=== PATIENT | male | born 1960 | race Caucasian/White ===

== ENCOUNTER 2017-01-17 18:27 | Observation (INO) | payer OTHER ==
[~2017-01-17] VITALS: Ht 170.2 cm; Wt 97.0 kg
[2017-01-17] MEDS ORDERED: ASPIRIN 81 MG CHEW PO STA (18:41)
[2017-01-17] MEDS ORDERED: SODIUM CHLORIDE 0.9% 1000ML 1,000 ML IV STA (18:41)
[2017-01-17] MEDS ORDERED: MoRPHine SULFATE 4 MG/ML 1 ML CARP\\VIAL IV STA (18:43)
[2017-01-17 19:11] LABS: BASO % 0.2 %; BASO ABS # 0.02 K/uL (0-0.2); COMPLETE YES; EOS % 1.3 %; HEMATOCRIT 39.8 % (42-52); IG% 0.3 %; LYMPH % 20.2 %; LYMPH ABS # 1.97 K/uL (1.2-3.4); MEAN CELL VOLUME 88.4 fL (80-100); MEAN CORPUSCULAR HEMOGLOBIN 30.7 pg (25-34); MEAN CORPUSCULAR HGB CONC 34.7 g/dl (32-36); MEAN PLATELET VOLUME 9.4 fL (7.4-10.4); MONO % 12.6 %; NEUT % 65.4 %; PLATELET COUNT 230 K/uL (130-400); WHITE BLOOD COUNT 9.73 K/uL (4.8-10.8)
--- NOTE | 2017-01-17 19:26 | DIAGNOSTIC IMAGING REPORT ---
SINGLE VIEW CHEST CLINICAL HISTORY: Atypical chest pain. FINDINGS: An AP, portable, upright chest radiograph is compared to study dated 10/09/2006. The examination is degraded by portable technique and patient rotation. The heart is enlarged. The pulmonary vasculature is noncongested. Chronic interstitial thickening is similar to previous. No airspace consolidation, large pleural effusion, or pneumothorax is seen. The bony thorax is grossly intact. IMPRESSION: Cardiomegaly with no acute cardiopulmonary abnormality. Electronically signed by: Daniel Malloy M.D. 01/17/2017 7:25 PM Dictated Date/Time: 01/17/2017 7:24 PM
[2017-01-17 19:28] LABS: BLOOD UREA NITROGEN 10 mg/dl (7-18); BUN/CREATININE RATIO 9.3 (10-20); CALCIUM 8.8 mg/dl (8.5-10.1); CARBON DIOXIDE 24 mmol/L (21-32); CHLORIDE 112 mmol/L (98-107); GLUCOSE 100 mg/dl (70-99); POTASSIUM 3.8 mmol/L (3.5-5.1); SODIUM 142 mmol/L (136-145)
[2017-01-17 19:33] LABS: CKMB/CK RATIO 1.1 (0-3.0)
[2017-01-17] MEDS ORDERED: OPTIRAY 320 IV PRN (20:00)
--- NOTE | 2017-01-17 20:14 | DIAGNOSTIC IMAGING REPORT ---
CT ANGIOGRAM OF THE CHEST CLINICAL HISTORY: Atypical chest pain. COMPARISON STUDY: Chest x-ray dated 01/17/2017. TECHNIQUE: Following the IV administration of 93 cc of Optiray 320, CT angiogram of the chest was performed from the upper abdomen to the thoracic inlet utilizing the pulmonary embolus protocol. Images are reviewed in the axial, sagittal, and coronal planes. 3-D MIPS images are created and assessed. IV contrast was administered without complication. A dose lowering technique was utilized adhering to the principles of ALARA. CT DOSE: 602.43 mGy.cm FINDINGS: Thyroid: Imaged portions of the thyroid gland are normal in size and attenuation. Thoracic aorta: The thoracic aorta is normal in caliber and demonstrates bovine variant arch anatomy. No dissection is seen. Pulmonary vasculature: The pulmonary trunk is normal in caliber. There are no filling defects identified in main, lobar, or segmental pulmonary branches to suggest pulmonary embolus. Heart: The heart is mildly enlarged and without pericardial effusion. There are scattered coronary artery calcifications. Lungs and pleural spaces: There is a fat-containing Bochdalek hernia at the medial right lung base. No airspace consolidation or pleural effusion is identified. The trachea and central airways are clear. Mediastinum: There is no mediastinal lymphadenopathy. Mona: Clear. Axillae: There is no axillary lymphadenopathy. Upper abdomen: Partially visualized upper abdominal viscera is within normal limits. Skeletal structures: No lytic or blastic bony lesions are seen. IMPRESSION: 1. There is no evidence of pulmonary embolus in the main, lobar, or segmental pulmonary arteries. 2. The lungs are clear. 3. Cardiomegaly. Electronically signed by: Daniel Malloy M.D. 01/17/2017 8:13 PM Dictated Date/Time: 01/17/2017 8:05 PM
[2017-01-17] MEDS ORDERED: POLYETHYLENE (MIRALAX) 17 GM PACK PO PRN (20:45)
[2017-01-17] MEDS ORDERED: NITROGLYCERIN 0.4 MG SL PER TAB CHARGE SL PRN (20:45)
[2017-01-17] MEDS ORDERED: ACETAMINOPHEN 325 MG TAB PO PRN (20:45)
[2017-01-17] MEDS ORDERED: ZOLPIDEM TARTRATE 5 MG TAB PO PRN (20:45)
[2017-01-17] MEDS ORDERED: ONDANSETRON INJ 2 MG/ML 2 ML VIAL IV PRN (20:45)
[2017-01-17] MEDS ORDERED: MAGNESIUM HYDROXIDE SUSP 30 ML UDC PO PRN (20:45)
[2017-01-17] MEDS ORDERED: ALUMINUM/MAGNESIUM/SIMETH (MAALOX MAX) 30 ML UDC PO PRN (20:45)
--- NOTE | 2017-01-17 21:01 | History and Physical ---
History & Physical Date & Time of Service: Jan 17, 2017 at 20:53 Chief Complaint: Chest Pain Primary Care Physician: Francis Goldstein M.D. History of Present Illness Source: patient 56 y/o M Hx untreated HPL. Pt states that over the past 2 months he has had intermittent CP with exertion. Accompanied by sob - denies N/V, diaphoresis or lightheadedness. Over the past 2 days these episodes have occurred at rest and his pain level has increased. The pt denies a cardiac history, however, he states that a few years ago he was told that his cholesterol was high and he did not follow-up to address this. Initial EKG shows T wv inversions in inferior leads. His systolic pressure is in the 170s at the time of admission. 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 He does not drink daily, however, he sadaf drinks on weekends and can drink uo to 3 6 packs in an evening. He admits to a generally poor diet. Smoking Status: Never Smoker Immunizations History of Influenza Vaccine: No History of Tetanus Vaccine?: Unknown History of Pneumococcal: No History of Hepatitis B Vaccine: No Multi-Drug Resistant Organisms History of MDRO: No Allergies Coded Allergies: No Known Allergies (Unverified , 11/06/15) Home Medications No Active Prescriptions or Reported Meds Review of Systems Constitutional: No fever, No chills, No sweats Eyes: No worsening of vision, No eye pain ENT: No hearing loss, No unusual epistaxis, No nasal symptoms Respiratory: + shortness of breath, No cough, No sputum, No wheezing Cardiovascular: + chest pain, No orthopnea, No PND Abdomen: + pain, No nausea, No vomiting Musculoskeletal: No joint pain, No muscle pain Genitourinary - Male: No hematuria, No dysuria, No urinary frequency, No urinary urgency Neurologic: No memory loss, No paralysis, No weakness Psychiatric: No depression symptoms Endocrine: No fatigue Hematologic / Lymphatic: No abnormal bleeding/bruising Integumentary: No rash Allergic / Immunologic: No environmental allergies Physical Exam Vital Signs Date Time Temp Pulse Resp B/P (MAP) Pulse Ox O2 Delivery O2 Flow Rate FiO2 01/17/17 19:53 64 20 167/104 100 Nasal Cannula 2.0 01/17/17 19:03 77 01/17/17 19:01 78 20 177/104 96 Room Air 01/17/17 18:59 96 Room Air 01/17/17 18:30 36.9 86 18 159/104 95 Room Air General Appearance: WD/WN, no apparent distress Head: normocephalic, atraumatic Eyes: normal inspection, EOMI ENT: normal ENT inspection, pharynx normal Neck: supple, no JVD Respiratory/Chest: chest non-tender, lungs clear, normal breath sounds, no respiratory distress, no accessory muscle use Cardiovascular: regular rate, rhythm, no edema, no gallop, no JVD, no murmur, normal peripheral pulses Abdomen/GI: normal bowel sounds, + tenderness (RUQ) Back: normal inspection, no CVA tenderness, no muscle spasm, normal range of motion Extremities/Musculoskelatal: normal inspection, no calf tenderness, normal capillary refill Neurologic/Psych: 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 hand II-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 nml as tested, no motor/sensory deficits, alert, normal mood/affect, normal reflexes, oriented x 3 Skin: normal color, warm/dry, no rash Diagnostics Laboratory Results Results Past 24 Hours Test 01/17/17 19:02 Range/Units White Blood Count 9.73 4.8-10.8 K/uL Red Blood Count 4.50 4.7-6.1 M/uL Hemoglobin 13.8 14.0-18.0 g/dL Hematocrit 39.8 42-52 % Mean Corpuscular Volume 88.4 80-100 fL Mean Corpuscular Hemoglobin 30.7 25-34 pg Mean Corpuscular Hemoglobin Concent 34.7 32-36 g/dl Platelet Count 230 130-400 K/uL Mean Platelet Volume 9.4 7.4-10.4 fL Neutrophils (%) (Auto) 65.4 % Lymphocytes (%) (Auto) 20.2 % Monocytes (%) (Auto) 12.6 % Eosinophils (%) (Auto) 1.3 % Basophils (%) (Auto) 0.2 % Neutrophils # (Auto) 6.35 1.4-6.5 K/uL Lymphocytes # (Auto) 1.97 1.2-3.4 K/uL Monocytes # (Auto) 1.23 0.11-0.59 K/uL Eosinophils # (Auto) 0.13 0-0.5 K/uL Basophils # (Auto) 0.02 0-0.2 K/uL RDW Standard Deviation 42.3 36.4-46.3 fL RDW Coefficient of Variation 13.1 11.5-14.5 % Immature Granulocyte % (Auto) 0.3 % Immature Granulocyte # (Auto) 0.03 0.00-0.02 K/uL D-Dimer 560 0-500 ug/L FEU Sodium Level 142 136-145 mmol/L Potassium Level 3.8 3.5-5.1 mmol/L Chloride Level 112 98-107 mmol/L Carbon Dioxide Level 24 21-32 mmol/L Anion Gap 6.0 3-11 mmol/L Blood Urea Nitrogen 10 7-18 mg/dl Creatinine 1.10 0.60-1.40 mg/dl Est Creatinine Clear Calc Drug Dose 85.1 ml/min Estimated GFR () 86.5 Estimated GFR (Non- 74.6 BUN/Creatinine Ratio 9.3 10-20 Random Glucose 100 70-99 mg/dl Calcium Level 8.8 8.5-10.1 mg/dl Total Creatine Kinase 176 39-308 U/L Creatine Kinase MB 1.9 0.5-3.6 ng/ml Creatine Kinase MB Ratio 1.1 0-3.0 Troponin I < 0.015 0-0.045 ng/ml Diagnostic Radiology CTA 1. There is no evidence of pulmonary embolus in the main, lobar, or segmental pulmonary arteries. 2. The lungs are clear. 3. Cardiomegaly. EKG NSR - inf t wv inversions Impression Assessment and Plan 56 y/o M Hx untreated HPL. Pt states that over the past 2 months he has had intermittent CP with exertion. Accompanied by sob - denies N/V, diaphoresis or lightheadedness. Over the past 2 days these episodes have occurred at rest and his pain level has increased. The pt denies a cardiac history, however, he states that a few years ago he was told that his cholesterol was high and he did not follow-up to address this. Initial EKG shows T wv inversions in inferior leads. His systolic pressure is in the 170s at the time of admission. Pt is admitted for a chest pain workup - he has several risk factors and concerning symptoms which appear to be worsening. He is assigned to telemetry, serial enzymes ordered, NTG/Morphine PRN for CP, placed on a Statin, ASA, Bblocker due to elevated pressure. We will check a lipid profile. Considering his history it may be prudent to schedule inpatient stress testing prior to DC. Pts pressure is elevated - unclear if this is chronic. Ther is no LVH on EKG although the CT does show cardiomegaly. He has been placed on TD NTG and a B gerard. He does have some RUQ tenderness following a sadaf-drinking episode so that we will check a lipase. Full code Heparin prophylaxis - total time for this admit including review of labs, meds, EKG, imaging - discussion with pt and ER attending 38 min Level of Care Telemetry Resuscitation Status FULL RESUSCITATION VTE Prophylaxis VTE Risk Assessment Done? Y/N: Yes Risk Level: Low Given or contraindicated: Unfractionated heparin SQ
[2017-01-17] MEDS: MoRPHine SULFATE 2 MG/ML CARP IV PRN (21:09)
[2017-01-17 22:03] VITALS: BP 177/99; PULSE 58; TEMP 36.7; BMI 32.9
[2017-01-17] MEDS ORDERED: IV FLUIDS COMPLETED PRN (22:15)
[2017-01-17 22:22] VITALS: BP 181/102; PULSE 58; TEMP 36.4; O2SAT 98
[2017-01-17] MEDS ORDERED: NITROGLYCERIN 0.4 MG/HR PATCH TD ONE (22:30)
[2017-01-17] MEDS: NSS + 20MEQ KCL 1000ML 1,000 ML IV SCH (22:32)
[2017-01-17] MEDS: METOPROLOL TARTRATE 25 MG TAB PO SCH (22:33)
[2017-01-17 23:37] VITALS: BP 151/74; PULSE 57; TEMP 36.6; O2SAT 97
--- NOTE | 2017-01-17 23:39 | EMERGENCY ROOM VISIT NOTE ---
History Report prepared by Fletcher: Yoan Hampton Under the Supervision of: Dr. Lm Vanegas D.O. First contact with patient: 18:36 Chief Complaint: CHEST PAIN Stated Complaint: CHEST PAIN History of Present Illness The patient is a 56 year old male who presents to the Emergency Room with complaints of waxing and waning left-sided chest tightness that began this morning at 0800. He rates his pain a 7/10 in severity. He has been having this pain intermittently for a couple of weeks now, but today it has been constantly present. His pain worsens with exertion and deep breaths. His pain is mildly relieved with rest. He is also experiencing shortness of breath and one episode of left arm numbness. Pt denies headache, change in vision, fevers, nausea, vomiting, diarrhea, pain with urination, melena, or leg swelling. He denies any history of heart attacks, PE's, cancers, or hypertension. He has a history of hyperlipidemia. Source of History: patient Onset: this morning Position: chest (left) Symptom Intensity: 7/10 Quality: other (tightness) Timing: waxes/wanes Modifying Factors (Worsening): exertion, breathing Modifying Factors (Relieving): rest Associated Symptoms: + SOB, No fevers, No headache, No nausea, No vomiting, No melena, No diarrhea, No urinary symptoms Review of Systems See HPI for pertinent positives & negatives. A total of 10 systems reviewed and were otherwise negative. Past Medical & Surgical Medical Problems: (1) Chest pain (2) Hyperlipidemia Family History Omitted secondary to patient's age. Social History Smoking Status: Never Smoker Smokeless Tobacco Use: No Drug Use: none Marital Status: Housing Status: lives with family Occupation Status: employed Current/Historical Medications No Active Prescriptions or Reported Meds Allergies Coded Allergies: No Known Allergies (Unverified , 11/06/15) Physical Exam Vital Signs Date Time Temp Pulse Resp B/P (MAP) Pulse Ox O2 Delivery O2 Flow Rate FiO2 01/17/17 20:30 170/110 01/17/17 20:27 70 15 98 01/17/17 20:08 168/93 01/17/17 19:53 64 20 167/104 100 Nasal Cannula 2.0 01/17/17 19:30 167/104 01/17/17 19:27 72 18 99 01/17/17 19:16 173/127 01/17/17 19:03 77 01/17/17 19:01 78 20 177/104 96 Room Air 01/17/17 18:59 96 Room Air 01/17/17 18:57 177/104 01/17/17 18:30 36.9 86 18 159/104 95 Room Air Physical Exam GENERAL: alert, disheveled appearing, well nourished, no distress, non-toxic, sitting up in bed EYE EXAM: normal conjunctiva OROPHARYNX: no exudate, no erythema, lips, buccal mucosa, and tongue normal and mucous membranes are moist NECK: supple, no nuchal rigidity, no adenopathy, non-tender LUNGS: Clear to auscultation. Normal chest wall mechanics HEART: no murmurs, S1 normal and S2 normal CHEST: Left anterior chest wall pain to palpation. ABDOMEN: abdomen soft, non-tender, normo-active bowel sounds, no masses, no rebound or guarding. BACK: Back is symmetrical on inspection and there is no deformity, no midline tenderness, no CVA tenderness. SKIN: no rashes and no bruising UPPER EXTREMITIES: upper extremities are grossly normal. Radial pulses equal bilaterally. LOWER EXTREMITIES: No pitting edema. Calves equal bilaterally. NEURO EXAM: Normal sensorium, cranial nerves II-XII grossly intact, normal speech, no gross weakness of arms, no gross weakness of legs. Medical Decision & Procedures ER Provider Diagnostic Interpretation: Radiology results as stated below per my review and the radiologist's interpretation: SINGLE VIEW CHEST CLINICAL HISTORY: Atypical chest pain. FINDINGS: An AP, portable, upright chest radiograph is compared to study dated 10/09/2006. The examination is degraded by portable technique and patient rotation. The heart is enlarged. The pulmonary vasculature is noncongested. Chronic interstitial thickening is similar to previous. No airspace consolidation, large pleural effusion, or pneumothorax is seen. The bony thorax is grossly intact. IMPRESSION: Cardiomegaly with no acute cardiopulmonary abnormality. Electronically signed by: Daniel Malloy M.D. 01/17/2017 7:25 PM Dictated Date/Time: 01/17/2017 7:[address] ANGIOGRAM OF THE CHEST CLINICAL HISTORY: Atypical chest pain. COMPARISON STUDY: Chest x-ray dated 01/17/2017. TECHNIQUE: Following the IV administration of 93 cc of Optiray 320, CT angiogram of the chest was performed from the upper abdomen to the thoracic inlet utilizing the pulmonary embolus protocol. Images are reviewed in the axial, sagittal, and coronal planes. 3-D MIPS images are created and assessed. IV contrast was administered without complication. A dose lowering technique was utilized adhering to the principles of ALARA. CT DOSE: 602.43 mGy.cm FINDINGS: Thyroid: Imaged portions of the thyroid gland are normal in size and attenuation. Thoracic aorta: The thoracic aorta is normal in caliber and demonstrates bovine variant arch anatomy. No dissection is seen. Pulmonary vasculature: The pulmonary trunk is normal in caliber. There are no filling defects identified in main, lobar, or segmental pulmonary branches to suggest pulmonary embolus. Heart: The heart is mildly enlarged and without pericardial effusion. There are scattered coronary artery calcifications. Lungs and pleural spaces: There is a fat-containing Bochdalek hernia at the medial right lung base. No airspace consolidation or pleural effusion is identified. The trachea and central airways are clear. Mediastinum: There is no mediastinal lymphadenopathy. Mona: Clear. Axillae: There is no axillary lymphadenopathy. Upper abdomen: Partially visualized upper abdominal viscera is within normal limits. Skeletal structures: No lytic or blastic bony lesions are seen. IMPRESSION: 1. There is no evidence of pulmonary embolus in the main, lobar, or segmental pulmonary arteries. 2. The lungs are clear. 3. Cardiomegaly. Electronically signed by: Daniel Malloy M.D. 01/17/2017 8:13 PM Dictated Date/Time: 01/17/2017 8:05 PM Laboratory Results 01/17/17 19:02 Red Blood Count 4.50, Mean Corpuscular Volume 88.4, Mean Corpuscular Hemoglobin 30.7, Mean Corpuscular Hemoglobin Concent 34.7, Mean Platelet Volume 9.4, Neutrophils (%) (Auto) 65.4, Lymphocytes (%) (Auto) 20.2, Monocytes (%) (Auto) 12.6, Eosinophils (%) (Auto) 1.3, Basophils (%) (Auto) 0.2, Neutrophils # (Auto ) 6.35, Lymphocytes # (Auto) 1.97, Monocytes # (Auto) 1.23, Eosinophils # (Auto ) 0.13, Basophils # (Auto) 0.02 01/17/17 19:02 Test 01/17/17 19:02 White Blood Count 9.73 K/uL (4.8-10.8) Red Blood Count 4.50 M/uL (4.7-6.1) Hemoglobin 13.8 g/dL (14.0-18.0) Hematocrit 39.8 % (42-52) Mean Corpuscular Volume 88.4 fL (80-100) Mean Corpuscular Hemoglobin 30.7 pg (25-34) Mean Corpuscular Hemoglobin Concent 34.7 g/dl (32-36) Platelet Count 230 K/uL (130-400) Mean Platelet Volume 9.4 fL (7.4-10.4) Neutrophils (%) (Auto) 65.4 % Lymphocytes (%) (Auto) 20.2 % Monocytes (%) (Auto) 12.6 % Eosinophils (%) (Auto) 1.3 % Basophils (%) (Auto) 0.2 % Neutrophils # (Auto) 6.35 K/uL (1.4-6.5) Lymphocytes # (Auto) 1.97 K/uL (1.2-3.4) Monocytes # (Auto) 1.23 K/uL (0.11-0.59) Eosinophils # (Auto) 0.13 K/uL (0-0.5) Basophils # (Auto) 0.02 K/uL (0-0.2) RDW Standard Deviation 42.3 fL (36.4-46.3) RDW Coefficient of Variation 13.1 % (11.5-14.5) Immature Granulocyte % (Auto) 0.3 % Immature Granulocyte # (Auto) 0.03 K/uL (0.00-0.02) D-Dimer 560 ug/L FEU (0-500) Anion Gap 6.0 mmol/L (3-11) Est Creatinine Clear Calc Drug Dose 85.1 ml/min Estimated GFR () 86.5 Estimated GFR (Non- 74.6 BUN/Creatinine Ratio 9.3 (10-20) Calcium Level 8.8 mg/dl (8.5-10.1) Total Creatine Kinase 176 U/L (39-308) Creatine Kinase MB 1.9 ng/ml (0.5-3.6) Creatine Kinase MB Ratio 1.1 (0-3.0) Laboratory results per my review. Medications Administered Medications (Trade) Dose Ordered Sig/Mauricio Route Start Time Stop Time Status Last Admin Dose Admin Sodium Chloride 1,000 ml @ 999 mls/hr Q1H1M STAT IV 01/17/17 18:41 01/17/17 19:41 DC 01/17/17 19:12 999 MLS/HR Aspirin (Aspirin Chew) 324 mg NOW STAT PO 01/17/17 18:41 01/17/17 18:43 DC 01/17/17 19:11 324 MG Morphine Sulfate (MoRPHine SULFATE INJ) 4 mg NOW STAT IV 01/17/17 18:43 01/17/17 18:44 DC 01/17/17 19:12 4 MG ECG Indication: chest pain Rate (beats per minute): 81 Rhythm: sinus rhythm Findings: nonspecific-ST abn (Lateral and high lateral), T-wave inversion ( Inferior) Comparison ECG Date: 05 Apr 2010 Change: T-inversion and ST changes are new. Repeat ECG: improved, SR 61, no ischemic changes or ectopy. ED Course ED COURSE: Vital signs were reviewed and showed hypertension. The patients medical record was reviewed The above diagnostic studies were performed and reviewed. ED treatments and interventions as stated above. 1836: The patient was evaluated in room C4. A complete history and physical examination was performed. 1841: Ordered Aspirin 324 mg PO, Sodium Chloride 1000 ml @ 999 mls/hr IV 1843: Ordered Morphine Sulfate 4 mg IV 2009: The patient's tightness is gone, but his pleuritic pain is still there. However, it has improved. 2016: Upon reevaluation, the patient is resting. I discussed my findings with the patient and he understands and agrees with the treatment plan. Based on the patients age, coexisting illnesses, exam and lab findings the decision to treat as an inpatient was made. The patient remained stable while under my care. The patient will be evaluated by Dr. Cruz LOYA, for further management. Medical Decision Differential diagnoses includes but is not limited to acute coronary syndrome, myocardial infarction, pericarditis, pulmonary embolus, aortic dissection, pneumonia, pneumothorax, musculoskeletal, shingles, esophageal. Patient is a 56-year-old male who complains of exertional chest pain which is worsening over the past 2 weeks. He notes it's most specifically worse over the past 2 days. It resolves with rest. He does complain of 2 separate chest pains. One of which is pleuritic in nature and the other is a tightness. Following nitroglycerin and fentanyl his tightness completely resolved. The pleuritic pain remained. D-dimer was elevated. CT PE was negative. Initial EKG showed flipped T waves in the inferior leads which resolved with resolution of his chest tightness. Troponin was negative. Patient was updated at bedside and admitted to internal medicine with exertional chest pain. Medication Reconcilliation Current Medication List: was personally reviewed by me Blood Pressure Screening Patient's blood pressure: Elevated blood pressure Blood pressure disposition: Elevated BP felt to be situational Consults Time Called: 2013 Consulting Physician: Dr. Cruz RODRÍGUEZ Returned Call: 2015 I reviewed the patient's case with him. He will evaluate the patient for further management. Impression Primary Impression: Precordial chest pain Additional Impressions: Pleuritic chest pain Acute electrocardiogram changes Scribe Attestation The scribe's documentation has been prepared under my direction and personally reviewed by me in its entirety. I confirm that the note above accurately reflects all work, treatment, procedures, and medical decision making performed by me. Departure Information Dispostion Being Evaluated By Hospitalist Prescriptions No Active Prescriptions or Reported Meds Referrals Francis Goldstein M.D. (PCP) Patient Instructions My [facility] Problem Qualifiers
[2017-01-18] MEDS: MoRPHine SULFATE 2 MG/ML CARP IV PRN ×5 (00:06→09:50)
[2017-01-18 03:55] VITALS: O2SAT 98
[2017-01-18 03:59] VITALS: BP 125/81; PULSE 51; TEMP 36.5; O2SAT 96; Ht 170.2 cm; Wt 97.0 kg
[2017-01-18 05:44] LABS: PARTIAL THROMBOPLASTIN RATIO 1.1; PROTHROMBIN TIME (PATIENT) 10.6 SECONDS (9.0-12.0)
[2017-01-18] MEDS ORDERED: HEPARIN SOD 5000 UNIT/0.5 ML CARP SQ SCH (06:00)
[2017-01-18 07:19] VITALS: BP 132/87; PULSE 50; TEMP 36.9; O2SAT 96
[2017-01-18] MEDS: NSS + 20MEQ KCL 1000ML 1,000 ML IV SCH (07:55)
[2017-01-18] MEDS: METOPROLOL TARTRATE 25 MG TAB PO SCH (07:56)
[2017-01-18] MEDS ORDERED: ATORVASTATIN 40 MG TAB PO SCH (09:00)
[2017-01-18] MEDS ORDERED: ASPIRIN 325 MG ECTAB PO SCH (09:00)
[2017-01-18 09:13] LABS: CHOLESTEROL/HDL RATIO 5.4
[2017-01-18 12:43] VITALS: BP 160/87; PULSE 60; O2SAT 96
[2017-01-18] MEDS ORDERED: NXM/40 PO (14:20)
[2017-01-18] MEDS ORDERED: CYCL10TA6 PO (14:20)
[2017-01-18] MEDS ORDERED: ACET-1047 PO (14:20)
--- NOTE | 2017-01-18 14:30 | Discharge Instructions ---
Discharge Instructions Date of Service Jan 18, 2017. Admission Reason for Admission: Chest Pain Discharge Discharge Diagnosis / Problem: Musculoskeletal chest pain Discharge Goals Goal(s): Decrease discomfort, Improve disease control, Therapeutic intervention Activity Recommendations Activity Limitations: as noted below Lifting Limitations: no more than 10 pounds Exercise/Sports Limitations: rest today (please avoid heavy lifting for 1 week) Shower/Bathe: no limitations Driving or Machine Use: no driving while taking medication that can make you drowsy like cyclobenzaprine (Flexeril) . Instructions / Follow-Up Instructions / Follow-Up You were admitted for left sided chest pain. You had a normal stress test of the heart. You cholesterol was checked along with other blood work. You do not need to be on medication for your cholesterol. It is recommended that you follow a healthy diet and refrain from drinking excessive amounts of alcohol. Your chest pain is thought to be coming from a strained pectoralis muscle from heavy lifting. You are having muscle spasms of the muscle in your chest wall. You should refrain from any heavy lifting over the next week (no more than 10 lbs.). If it is not improving, you should seek a referral to see a Physical Therapist from your family doctor. Your blood pressure was elevated at times in the hospital. It is important that you follow up with your family doctor about this too. Because you have a mild anemia (low iron level), and had one episode of a black stool last week, you should follow up with your Design Assembler, Dr. Horace Rivera. You may need to have a scope to look at your stomach.If you develop more black stools, you should come to the ER immediately. Please see your family doctor within 1 week. Current Hospital Diet Patient's current hospital diet: AHA Diet (Heart Healthy) Discharge Diet Recommended Diet: AHA Diet (Heart Healthy) Procedures Procedures Performed: Stress Echocardiogram CT angiogram chest Chest xray Pending Studies Studies pending at discharge: no Laboratory Results Last 24 Hours Test 01/17/17 19:02 01/17/17 23:20 01/18/17 04:40 01/18/17 06:04 White Blood Count 9.73 K/uL Red Blood Count 4.50 M/uL Hemoglobin 13.8 g/dL Hematocrit 39.8 % Mean Corpuscular Volume 88.4 fL Mean Corpuscular Hemoglobin 30.7 pg Mean Corpuscular Hemoglobin Concent 34.7 g/dl Platelet Count 230 K/uL Mean Platelet Volume 9.4 fL Neutrophils (%) (Auto) 65.4 % Lymphocytes (%) (Auto) 20.2 % Monocytes (%) (Auto) 12.6 % Eosinophils (%) (Auto) 1.3 % Basophils (%) (Auto) 0.2 % Neutrophils # (Auto) 6.35 K/uL Lymphocytes # (Auto) 1.97 K/uL Monocytes # (Auto) 1.23 K/uL Eosinophils # (Auto) 0.13 K/uL Basophils # (Auto) 0.02 K/uL RDW Standard Deviation 42.3 fL RDW Coefficient of Variation 13.1 % Immature Granulocyte % (Auto) 0.3 % Immature Granulocyte # (Auto) 0.03 K/uL D-Dimer 560 ug/L FEU Sodium Level 142 mmol/L Potassium Level 3.8 mmol/L Chloride Level 112 mmol/L Carbon Dioxide Level 24 mmol/L Anion Gap 6.0 mmol/L Blood Urea Nitrogen 10 mg/dl Creatinine 1.10 mg/dl Est Creatinine Clear Calc Drug Dose 85.1 ml/min Estimated GFR () 86.5 Estimated GFR (Non- 74.6 BUN/Creatinine Ratio 9.3 Random Glucose 100 mg/dl Calcium Level 8.8 mg/dl Total Creatine Kinase 176 U/L Creatine Kinase MB 1.9 ng/ml Creatine Kinase MB Ratio 1.1 Troponin I < 0.015 ng/ml < 0.015 ng/ml < 0.015 ng/ml Hepatitis C Antibody Screen PRELIM POS Prothrombin Time 10.6 SECONDS Prothromb Time International Ratio 1.0 Activated Partial Thromboplast Time 27.7 SECONDS Partial Thromboplastin Ratio 1.1 Lipase 138 U/L Test 01/18/17 08:15 Total Bilirubin 0.4 mg/dl Direct Bilirubin 0.1 mg/dl Aspartate Amino Transf (AST/SGOT) 20 U/L Alanine Aminotransferase (ALT/SGPT) 25 U/L Alkaline Phosphatase 73 U/L Total Protein 6.6 gm/dl Albumin 3.2 gm/dl Triglycerides Level 117 mg/dl Cholesterol Level 199 mg/dl HDL Cholesterol 37 mg/dl LDL Cholesterol, Calculated 139 mg/dl VLDL Cholesterol, Calculated 23 mg/dl Cholesterol/HDL Ratio 5.4 Lipid Panel Test 01/18/17 08:15 Range/Units Triglycerides Level 117 0-150 mg/dl Cholesterol Level 199 0-200 mg/dl HDL Cholesterol 37 mg/dl Cholesterol/HDL Ratio 5.4 LDL Cholesterol, Calculated 139 mg/dl Medical Emergencies . Who to Call and When: Medical Emergencies: If at any time you feel your situation is an emergency, please call 911 immediately. . Non-Emergent Contact Non-Emergency issues call your: Primary Care Provider, Design Assembler Call Non-Emergent contact if: your pain is not controlled, your pain is worsening, your pain is unusual for you, your pain is concerning you, you have any medication questions . . "Provider Documentation" section prepared by Jaimee Paredes. . VTE Core Measure Inpt VTE Proph given/why not?: Unfractionated heparin SQ
[2017-01-18 14:32] VITALS: BP 160/87; PULSE 60; TEMP 36.9; O2SAT 96
--- NOTE | 2017-01-18 15:52 | EXERCISE STRESS ECHO ---
*NOTICE TO RECEIVING CONSTITUTION PARTY AGENCY This information is strictly Confidential and protected under [place] law. [place] law prohibits you from making any further disclosure of this information unless further disclosure is expressly permitted by the written consent of the person to whom it pertains or is authorized by law. A general authorization for the release of medical or other information is not sufficient for this purpose. Hospital accepts no responsibility if the information is made available to any other person, INCLUDING THE PATIENT. Interpretation Summary * Name: LIZA CRISTOBAL Study Date: 01/18/2017 10:23 AM BP: 145/95 mmHg * Patient Location: C.2T\S\S241\S\2 HR: 56 * : 1960 (M/d/yyyy) Gender: Male Height: 67 in * Age: 56 yrs Ethnicity: [place] Weight: 213 lb * Ordering Physician: Jaimee Paredes * Performed By: Natalia Johnson * * Reason For Study: CHEST PAIN * BSA: 2.1 m2 * -- Conclusions -- * Stress Echo: * 1. No ischemic changes noted on stress echo imaging at 78% MPHR. Target heart rate not attained. Cannot rule out ischemic changes at faster heart rate. * 2. Borderline abnormal exercise stress ECG at 78% MPHR. Target heart rate not attained. * 3. Hypertensive blood pressure response to exercise. * 4. No arrhythmia. * 5. Study terminated due to fatigue. Chest pain was present prior to exercise and continued intermittently throughout exercise. * 6. Good exercise tolerance. * 7. Technically difficult study, enhanced with IV Definity. * ECHO: * 1. Normal left ventricular size and systolic function. EF 60-65%. No regional wall motion abnormalities. Mild concentric left ventricular hypertrophy. Type 1 diastolic dysfunction. * 2. The left atrium is mildly dilated. * 3. There is mild mitral regurgitation. * 4. Normal estimated right ventricular systolic pressure; 30 mmHg. * 5. No prior study available for comparison. Procedure Details * ECHOEX, CPT #[id number] * ECHO DOPPLER, CPT #[id number] * ECHO COLOR FLOW, CPT #[id number] * A contrast injection of Definity was performed to improve assessment of LV function. * Contrast was injected into an intravenous site in the right arm. * One vial of Definity ultrasound contrast was diluted in normal saline to a total volume of 10 ml. A total of '4.5' ml of solution was administered during imaging. * Lot # [id number] of Definity utilized for procedure. * Expiration date 01/17. * The attending nurse who injected the contrast agent was VICKY AHN RN. Left Ventricle * The left ventricle is normal in size. * There is moderate concentric left ventricular hypertrophy. * Left ventricular systolic function is normal. * Resting wall motion: Normal. Stress wall motion: Appropriate increase in Left ventricular systolic function and decrease in cavity size. No stress induced segmental wall motion abnormalities. * The left ventricular ejection fraction increases normally with stress. The left ventricular end-systolic cavity size reduces post-stress (normal response). The left ventricular wall motion with stress is normal. Right Ventricle * The right ventricle is normal in size and function. * The right ventricular systolic function is normal as assessed by tricuspid annular plane systolic excursion (TAPSE) (normal >1.5 cm). Atria * The left atrium is mildly dilated. * Right atrial size is normal. * There is no evidence of atrial septal defect, but resolution does not allow assessment for a patent foramen ovale. Mitral Valve * The mitral valve leaflets appear normal. There is no evidence of stenosis, fluttering, or prolapse. * There is no mitral valve stenosis. * There is mild mitral regurgitation. Tricuspid Valve * The tricuspid valve is not well visualized, but is grossly normal. * There is no tricuspid stenosis. * There is mild tricuspid regurgitation. Aortic Valve * The aortic valve is trileaflet. * No hemodynamically significant valvular aortic stenosis. * No aortic regurgitation is present. Pulmonic Valve * The pulmonary valve is inadequately visualized, but the Doppler data is adequate for interpretation. * There is no significant pulmonary regurgitation. Great Vessels * The aortic root is normal size. * Ascending aorta of normal dimension * Normal pulmonary venous flow pattern. Normal IVC size and inspiratory collapse. Pericardium * There is no pericardial effusion. Stress Parameters * Sinus bradycardia at 54 bpm. * 0.5-1 mm Horizontal/slow upsloping ST depression in leads II, III, aVF, V5, V6, which returned to baseline by approximately 5 minutes into recovery. No arrhythmia. * The stress portion of this study was personally supervised by the undersigned interpreting physician. * Rest heart rate was '56' BPM. * Rest blood pressure was '145/95' * Maximum heart rate achieved was 129 bpm. * Maximum heart rate was 78 % of maximum age-predicted heart rate. * Maximum blood pressure was '205/83' * Total exercise time was '9:41' * Maximum exercise MET level achieved was '11.20' METS * Maximum treadmill speed was '4.20' miles per hour. * Maximum treadmill elevation was '16.00'% grade. * Exercise was terminated due to 'fatigue' * Target Heart Rate was not achieved due to fatigue. * The patient exhibited chest pain during exercise. * Normal blood pressure response to exercise. Left Ventricular Diastolic Function * Grade I diastolic dysfunction, (abnormal relaxation pattern). MMode 2D Measurements and Calculations IVSd 1.4 cm IVSs 2.1 cm LVIDd 5.2 cm LVIDs 3.3 cm LVPWd 1.4 cm LVPWs 1.8 cm IVS/LVPW 0.97 FS 37.3 % EDV(Teich) 129.2 ml ESV(Teich) 42.8 ml EF(Teich) 66.9 % EDV(cubed) 140.2 ml ESV(cubed) 34.6 ml EF(cubed) 75.3 % % IVS thick 51.1 % % LVPW thick 27.7 % LV mass(C)d 309.7 grams LV mass(C)dI 149.1 grams/m\S\2 LV mass(C)s 277.6 grams LV mass(C)sI 133.6 grams/m\S\2 CO(Teich) 4.8 l/min CI(Teich) 2.3 l/min/m\S\2 SV(Teich) 86.4 ml SI(Teich) 41.6 ml/m\S\2 CO(cubed) 5.9 l/min CI(cubed) 2.8 l/min/m\S\2 SV(cubed) 105.6 ml SI(cubed) 50.8 ml/m\S\2 Ao root diam 4.0 cm Ao root area 12.6 cm\S\2 ACS 2.1 cm LA dimension 4.3 cm asc Aorta Diam 3.6 cm LA/Ao 1.1 LVOT diam 1.9 cm LVOT area 2.9 cm\S\2 LVAd ap4 35.8 cm\S\2 LVLd ap4 9.1 cm LVAs ap4 15.4 cm\S\2 LVLs ap4 6.4 cm LVAd ap2 32.8 cm\S\2 LVLd ap2 8.3 cm LVAs ap2 15.4 cm\S\2 LVLs ap2 6.7 cm Doppler Measurements and Calculations MV E max yousuf 77.9 cm/sec MV A max yousuf 88.8 cm/sec MV E/A 0.88 MV dec time 0.22 sec Ao V2 max 121.6 cm/sec Ao max PG 5.9 mmHg Ao max PG (full) 1.4 mmHg BHAVIN(V,A) 2.5 cm\S\2 BHAVIN(V,D) 2.5 cm\S\2 LV V1 max PG 4.5 mmHg LV V1 max 105.8 cm/sec MR max yousuf 473.3 cm/sec MR max PG 90.0 mmHg PA V2 max 52.1 cm/sec PA max PG 1.1 mmHg TR max yousuf 259.7 cm/sec RVSP(TR) 30.0 mmHg RAP systole 3.0 mmHg
--- NOTE | 2017-02-04 17:19 | Discharge Summary ---
Discharge Summary Date of Service Jan 18, 2017. Discharge Summary Admission Date: Jan 17, 2017 at 20:36 Discharge Date: Jan 18, 2017 Discharge Disposition: Home Principal Diagnosis: Musculoskeletal chest pain Problems/Secondary Diagnoses: Melena Mild anemia Alcohol abuse Elevated BP Chronic diastolic CHF Immunizations: Have You Had Influenza Vaccine: No History of Tetanus Vaccine?: Unknown History of Pneumococcal: No History of Hepatitis B Vaccine: No Procedures: Echo: Stress Echo: 1. No ischemic changes noted on stress echo imaging at 78% MPHR. Target heart rate not attained. Cannot rule out ischemic changes at faster heart rate. 2. Borderline abnormal exercise stress ECG at 78% MPHR. Target heart rate not attained. 3. Hypertensive blood pressure response to exercise. 4. No arrhythmia. 5. Study terminated due to fatigue. Chest pain was present prior to exercise and continued intermittently throughout exercise. 6. Good exercise tolerance. 7. Technically difficult study, enhanced with IV Definity. ECHO: 1. Normal left ventricular size and systolic function. EF 60-65%. No regional wall motion abnormalities. Mild concentric left ventricular hypertrophy. Type 1 diastolic dysfunction. 2. The left atrium is mildly dilated. 3. There is mild mitral regurgitation. 4. Normal estimated right ventricular systolic pressure; 30 mmHg. 5. No prior study available for comparison. SINGLE VIEW CHEST CLINICAL HISTORY: Atypical chest pain. FINDINGS: An AP, portable, upright chest radiograph is compared to study dated 10/09/2006. The examination is degraded by portable technique and patient rotation. The heart is enlarged. The pulmonary vasculature is noncongested. Chronic interstitial thickening is similar to previous. No airspace consolidation, large pleural effusion, or pneumothorax is seen. The bony thorax is grossly intact. IMPRESSION: Cardiomegaly with no acute cardiopulmonary abnormality. CT ANGIOGRAM OF THE CHEST CLINICAL HISTORY: Atypical chest pain. COMPARISON STUDY: Chest x-ray dated 01/17/2017. TECHNIQUE: Following the IV administration of 93 cc of Optiray 320, CT angiogram of the chest was performed from the upper abdomen to the thoracic inlet utilizing the pulmonary embolus protocol. Images are reviewed in the axial, sagittal, and coronal planes. 3-D MIPS images are created and assessed. IV contrast was administered without complication. A dose lowering technique was utilized adhering to the principles of ALARA. CT DOSE: 602.43 mGy.cm FINDINGS: Thyroid: Imaged portions of the thyroid gland are normal in size and attenuation. Thoracic aorta: The thoracic aorta is normal in caliber and demonstrates bovine variant arch anatomy. No dissection is seen. Pulmonary vasculature: The pulmonary trunk is normal in caliber. There are no filling defects identified in main, lobar, or segmental pulmonary branches to suggest pulmonary embolus. Heart: The heart is mildly enlarged and without pericardial effusion. There are scattered coronary artery calcifications. Lungs and pleural spaces: There is a fat-containing Bochdalek hernia at the medial right lung base. No airspace consolidation or pleural effusion is identified. The trachea and central airways are clear. Mediastinum: There is no mediastinal lymphadenopathy. Mona: Clear. Axillae: There is no axillary lymphadenopathy. Upper abdomen: Partially visualized upper abdominal viscera is within normal limits. Skeletal structures: No lytic or blastic bony lesions are seen. IMPRESSION: 1. There is no evidence of pulmonary embolus in the main, lobar, or segmental pulmonary arteries. 2. The lungs are clear. 3. Cardiomegaly. Medication Reconciliation New Medications: Cyclobenzaprine Hcl (Flexeril) 10 Mg Tab 1 TAB PO TID PRN for Muscle Spasms, #15 TAB Esomeprazole Magnesium (Nexium) 40 Mg Cap 1 CAP PO DAILY for 30 Days, #30 CAP 0 Refills Acetaminophen (Mapap) 325 Mg Tab 650 MG PO Q4H PRN for Pain or Fever for 30 Days Referrals At Discharge Follow up Referrals: Field Scout Referral - Within 2 Weeks with Horace Rivera D.O. Physician Referral - Within 1 Week with Francis Goldstein M.D. Discharge Exam Pt continues to have recurrent episodes of moderate sharp pains in left side of chest that last a few minutes, come on at rest, relieved with pushing on that spot. He had chest pain through his stress test and despite having some abnormalities on ECG portion, I spoke with Microbiology Lab Assistant present during stress-- > ECHO images on stress all normal despite having active chest pain. Review of Systems: Constitutional: No fever Eyes: No problem reported ENT: No problem reported Respiratory: No shortness of breath Cardiovascular: + chest pain Abdomen: + GI bleeding (one black stool last week, then all normal brown stools since then), + problem reported (frequent heartburn), No pain, No nausea , No vomiting, No diarrhea, No constipation Musculoskeletal: + muscle pain (left chest wall) Genitourinary - Male: No problem reported Neurologic: No problem reported Psychiatric: + substance abuse (drinks 12-18 beers every Ronn night) Endocrine: No problem reported Hematologic / Lymphatic: No problem reported Integumentary: No problem reported Physical Exam: General Appearance: WD/WN (muscular throughout upper body), no apparent distress Eyes: normal inspection, sclerae normal ENT: hearing grossly normal Neck: trachea midline Respiratory/Chest: lungs clear, normal breath sounds, no respiratory distress, no accessory muscle use, + pertinent finding (+exquisite +TTP over left pectoralis muscle in pinpoint spot just lateral to nipple, no mass palpated , pain worse with resisted external rotation and left arm abduction) Cardiovascular: regular rate, rhythm, no edema, no gallop, no murmur, normal peripheral pulses Abdomen / GI: normal bowel sounds, non tender, soft, no organomegaly, no pulsatile mass Extremities: normal inspection, no calf tenderness, normal capillary refill , no pedal edema Neurologic/Psychiatric: alert, normal mood/affect, oriented x 3 Skin: normal color, warm/dry, no rash Hospital Course This patient is a 56 y/o M Hx untreated HPL. Pt states that over the past 2 months he has had intermittent CP with exertion. Accompanied by sob - denies N/ V, diaphoresis or lightheadedness. 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 Over the past 2 days these episodes have occurred at rest and his pain level has increased. The pt denies a cardiac history, however, he states that a few years ago he was told that his cholesterol was high and he did not follow-up to address this. Initial EKG shows T wv inversions in inferior leads. His systolic pressure is in the 170s at the time of admission. Pt is admitted for a chest pain workup - he has several risk factors and concerning symptoms which appear to be worsening. However, on my examination the morning after admission, he was obviously tender to palpation of the left pectoralis muscle which was worse with resisted external rotation of the left arm. He had no events on telemetry, his serial troponins were negative, and his submaximal stress echo was normal even while having the same chest pain during the test. He was instructed to refrain from any heavy lifting for at least 1-2 weeks and can potentially benefit from outpatient physical therapy. His lipid profile did not suggest that he needed treatment with a statin. Of note, he reported a fairly recent history of melena and with his history of alcohol abuse, as recommended that he abstain from drinking and follow up with GI as an outpatient. His hemoglobin here was very mildly anemic which is stable for many years prior. Stable for discharge to home. Total Time Spent: Greater than 30 minutes This includes examination of the patient, discharge planning, medication reconciliation, and communication with other providers. Discharge Instructions Please refer to the electronic Patient Visit Report (Discharge Instructions) for additional information. Follow-Up PCP within 1 week GI within 2 weeks-may need EGD Additional Copies To Francis Goldstein M.D.
== END 2017-01-18 14:43 | disposition home or self-care (01) ==
LOC: C.EDB 18:28 → C.2T 20:36 → ENRESERV 20:48
PROVIDERS: ADMIT Internal Medicine; ATTEND Family Medicine
DX: R07.89 Other chest pain (principal); E78.5 Hyperlipidemia, unspecified; R94.31 Abnormal electrocardiogram [ECG] [EKG]; Z79.899 Other long term (current) drug therapy

== ENCOUNTER 2019-07-02 15:47 | Observation (INO) ==
[2019-07-02] MEDS ORDERED: DEXAMETHASONE SOD PHOSPHATE 10 MG in SYRINGE 0 ML IV STA (18:30)
[2019-07-02] MEDS ORDERED: SODIUM CHLORIDE 0.9% 1000ML 1,000 ML IV ONE (18:30)
[2019-07-02] MEDS ORDERED: KETOROLAC TROMETHAMINE 15 MG/ML VIAL IV STA (18:30)
[2019-07-02] MEDS ORDERED: ACETAMINOPHEN 1,000 MG/100 ML VIAL IV STA (18:30)
[2019-07-02] MEDS ORDERED: DEXAMETHASONE **PF** INJ 10 MG/ML VIAL ONE (19:19)
[2019-07-02 19:55] LABS: Basophils # (auto) 0.02 K/uL (0-0.2); Basophils % (auto) 0.2 %; Eosinophils # (auto) 0.13 K/uL (0-0.5); Eosinophils % (auto) 1.4 %; Hematocrit (blood only) 40.1 % (42-52); Immature Granulocytes # (auto) 0.03 K/uL (0.00-0.02); Immature Granulocytes % (auto) 0.3 %; Lymphocytes # (auto) 2.14 K/uL (1.2-3.4); Mean Corpuscular Hemoglobin 31.3 pg (25-34); Mean Corpuscular Hgb Conc 34.9 g/dL (32-36); Mean Corpuscular Volume 89.7 fL (80-100); Mean Platelet Volume 9.6 fL (7.4-10.4); Monocytes # (auto) 1.06 K/uL (0.11-0.59); Monocytes % (auto) 11.4 %; Neutrophils # (auto) 5.94 K/uL (1.4-6.5); Neutrophils % (auto) 63.7 %; Platelet Count 224 K/uL (130-400); RDW Coefficient of Variation 13.3 % (11.5-14.5); RDW Standard Deviation 43.8 fL (36.4-46.3); Red Blood Count 4.47 M/uL (4.7-6.1); White Blood Count 9.32 K/uL (4.8-10.8)
[2019-07-02 20:27] LABS: Albumin Level 3.7 gm/dl (3.4-5.0); BUN Creatinine Ratio 11.9 (10-20); Calcium 8.9 mg/dl (8.5-10.1); Creatinine Clr Calc Pharmacy 81.8 ml/min; Est GFR (African American) 82.6; Est GFR (Non-African American) 71.3; Potassium 3.9 mmol/L (3.5-5.1)
[2019-07-02 20:30] LABS: Bilirubin,Total 0.4 mg/dl (0.2-1); Globulin 3.6 gm/dl (2.5-4.0); Total Protein 7.3 gm/dl (6.4-8.2)
[2019-07-02] MEDS ORDERED: IOVERSOL 100ml IV PRN (20:34)
--- NOTE | 2019-07-02 21:02 | CT Scan Report ---
ABDOMEN AND PELVIS CT WITH IV CONTRAST CT DOSE: 981.24 mGy.cm HISTORY: Acute periumbilical abdominal pain with possible hernia perimbilical pain, ?hernia TECHNIQUE: Multiaxial CT images of the abdomen and pelvis were performed following the IV administrat ion of 94 cc of Optiray 320, A dose lowering technique was utilized adhering to the principles of AL JESSICA. COMPARISON STUDY: CTA of the chest 01/17/2017 FINDINGS: Lipoma versus herniated fat noted at the right lung base, 3.5 cm. Minimal bibasilar atelectasis. No p neumatosis or pneumoperitoneum. Imaged inferior cardiac chambers are unremarkable. Spleen, pancreas, adrenal glands, liver and gallbladder appear unremarkable. Patency of the hepatic and portal veins. N o biliary ductal dilation. No renal or ureteral calculi or obstructive uropathy. Is probable cyst of the inferior pole right kid rachele, 6 mm. Decompressed urinary bladder with wall thickening. Prostate is prominent in size. Fat with in the inguinal canals, left greater than right may be physiologic or reflect small inguinal hernias. Mixed plaque of the abdominal aorta without aneurysm. Unremarkable IVC. No adenopathy. No bowel obstruction or bowel wall thickening. Mild fecal retention. Terminal ileum and appendix appe ar normal. Moderate sized fat filled periumbilical hernia, diastases 2.[address] randing and edema is noted within the periumbilical tissues. Mild adjacent skin thickening and indura tion. Spondylitic spurring and facet arthrosis of the lumbar spine. No acute fracture. Anterior disc osteophyte complex formation of the lumbar spine are also noted. Mild lumbar levoscoliosis. IMPRESSION: 1. No bowel obstruction or bowel wall thickening. Normal appendix. 2. Moderate sized fat filled periumbilical hernia containing moderate inflammatory stranding and trac e free fluid. Findings are suspicious for nonreducible hernia with fat necrosis. No bowel extension i nto the hernia sac. 3. Additional findings as above. ACT 112: Negative or not required by law. The above report was generated using voice recognition software. It may contain grammatical, syntax o r spelling errors. Electronically signed by: Paul Bess M.D. 07/02/2019 9:01 PM
[2019-07-02] MEDS ORDERED: MoRPHine SULFATE 10 MG/ML CARP/VIAL IV STA (21:11)
[2019-07-02] MEDS ORDERED: BUPIVACAINE 0.5 % 5 MG/1 ML MPF 30ML VIAL ONE (21:33)
[2019-07-02] MEDS ORDERED: SODIUM CHLORIDE 0.9% 1000ML 1,000 ML IV STA (21:37)
[2019-07-02] MEDS ORDERED: CEFAZOLIN 2000MG 2,000 MG/15 ML SYR IV ONE (21:56)
--- NOTE | 2019-07-02 21:56 | History & Physical Report ---
Date of Service July 02, 2019 Assessment & Plan (1) Incarcerated umbilical hernia: 58 yr old man with acutely incarcerated umbilical hernia and fat necrosis/ developing erythema. Discussed need for umbilical hernia repair, possible mesh. Risks of bleeding, infection, recurrence reviewed. Consent signed. For OR today. Present on Admission?: Yes History of Present Illness Chief Complaint: abdominal pain Primary Care Provider: Francis Goldstein MD 58 yr old man with history of prior laparoscopic right inguinal hernia repair presents with acutely incarcerated umbilical hernia. Was lifting heavy things this morning and felt a pop in his umbilicus. Developed severe pain, sharp, stabbing, worse with activity, better if stood still, no associated nausea or vomiting, no radiation. Superior a bulge at umbilicus which then started to look red and redness started spreading. Came to ER and CT scan showed fat necrosis within incarcerated umbilical hernia. Last meal was 10 am. Allergies Allergy/AdvReac Type Severity Reaction Status Date / Time No Known Allergies Allergy Unverified 07/02/19 19:32 Home Medications Home Medications Medication Instructions Recorded Confirmed Type No Known Home Medications 03/19/19 07/02/19 History Past Med/Surg History Medical History Hyperlipidemia (Chronic) Family History Other No significant family history Social History Feels Safe at Home: Yes Smoking Status: Never smoker Review of Systems Review of Systems: All systems reviewed & are unremarkable except as noted in HPI & below Physical Exam Constitutional: WD/WN, vitals as above Eyes: PERRL, conjunctivae normal, anicteric sclerae ENMT: Ears: no hearing impairment Neck: normal visual inspection Respiratory: normal respiratory effort, lungs clear to auscultation Cardiovascular: RRR, no murmur, no edema Gastrointestinal (Abdomen): Inspection/Auscultation: normal bowel sounds Percussion/Palpation: + abdomen tender (umbilical area with non reducible bulge, erythema of umbilicus) and abdomen soft erythema around umbilicus for about 10 cm Musculoskeletal: no cyanosis or clubbing, extremities motor strength 5/5 Skin: no rashes, warm and dry Neurologic: PERRL, EOMI, accommodation nl, no face palsy, no dysarthria Psychiatric: A+Ox3, euthymic affect Results & Data Vital Signs (Past 12 Hours) Vital Signs Temp Pulse Pulse Resp BP BP Pulse Ox 07/02/19 21:18 78 20 181/120 H 99 07/02/19 19:22 67 18 161/100 H 99 07/02/19 18:17 80 20 174/99 H 96 07/02/19 16:03 37.0 C 78 18 188/109 H 97 Laboratory Results 07/02/19 07/02/19 07/02/19 Range/Units 19:47 19:32 19:32 WBC 9.32 (4.8-10.8) K/uL RBC 4.47 L (4.7-6.1) M/uL Hgb 14.0 (14.0-18.0) g/dL Hct 40.1 L (42-52) % MCV 89.7 (80-100) fL MCH 31.3 (25-34) pg MCHC 34.9 (32-36) g/dL RDW Std Deviation 43.8 (36.4-46.3) fL RDW Coeff of Kelsi 13.3 (11.5-14.5) % Plt Count 224 (130-400) K/uL MPV 9.6 (7.4-10.4) fL Immature Gran % (Auto) 0.3 % Neut % (Auto) 63.7 % Lymph % (Auto) 23.0 % Redwood % (Auto) 11.4 % Eos % (Auto) 1.4 % Baso % (Auto) 0.2 % Immature Gran # (Auto) 0.03 H (0.00-0.02) K/uL Neut # (Auto) 5.94 (1.4-6.5) K/uL Lymph # (Auto) 2.14 (1.2-3.4) K/uL Redwood # (Auto) 1.06 H (0.11-0.59) K/uL Eos # (Auto) 0.13 (0-0.5) K/uL Baso # (Auto) 0.02 (0-0.2) K/uL Sodium 137 (136-145) mmol/L Potassium 3.9 (3.5-5.1) mmol/L Chloride 108 H (98-107) mmol/L Carbon Dioxide 24 (21-32) mmol/L Anion Gap 5.0 (3-11) BUN 13 (7-18) mg/dl Creatinine 1.13 (0.6-1.4) mg/dl POC Creatinine 1.1 (0.6-1.3) mg/dl Est Cr Clr Drug Dosing 81.8 ml/min Est GFR ( Amer) 82.6 Est GFR (Non-Af Amer) 71.3 BUN/Creatinine Ratio 11.9 (10-20) Glucose 94 (70-99) mg/dl Calcium 8.9 (8.5-10.1) mg/dl Total Bilirubin 0.4 (0.2-1) mg/dl AST 16 (15-37) U/L ALT 28 (12-78) U/L Alkaline Phosphatase 73 (45-117) U/L Total Protein 7.3 (6.4-8.2) gm/dl Albumin 3.7 (3.4-5.0) gm/dl Globulin 3.6 (2.5-4.0) gm/dl Albumin/Globulin Ratio 1.0 (0.9-2) Lipase 155 (73-393) U/L Diagnostic Findings CT scan showed fat necrosis within incarcerated umbilical hernia sac
--- NOTE | 2019-07-02 22:05 | Anesthesiology Consultation ---
Date of Service July 02, 2019 Assessment & Plan ASA [id number] Proposed Anesthesia Anesthesia Type: General Risk / Benefits Reviewed With: PT / POA / Parent / Guardian, Accepts Plan and Informed Consent Obtained History Surgery Operation Date: 07/02/19 22:30 Proposed Procedures p Umbilical Hernia Repair - Amparo Jolly MD Height/Weight Height: 5 ft 7 in Weight: 103.7 kg Allergies Allergy/AdvReac Type Severity Reaction Status Date / Time No Known Allergies Allergy Unverified 07/02/19 19:32 Medications Home Medications Medication Instructions Recorded Confirmed Last Taken No Known Home Medications 03/19/19 07/02/19 Unknown Active Medications Generic Name Dose Route Start Last Admin Trade Name Freq PRN Reason Stop Dose Admin Ioversol 94 ml 07/02/19 20:34 07/02/19 20:34 Optiray 320 100ml IV 07/06/19 20:33 94 ml ONCE PRN Administration Interaction Checking Past Medical History Medical History Hyperlipidemia (Chronic) Exercise / Class Metabolic Activity II 4-5 Yardwork/Stairs/Walk up hill Past Family History Family History Other No significant family history Past Anesthesia History No Hx of Anesthesia Complications and No Family Hx of Anesthesia Complications History of PONV No Hx of PONV and No Hx of Motion Sickness Social History Smoking Status: Never smoker Review of Systems denies fever/cough/ colds/ chest pain/ SOB/ JESUS Constitutional: no fever and no chills Respiratory: no cough and no dyspnea denies JESUS Cardiovascular: no chest pain and no dyspnea on exertion Physical Exam Vital Signs Last Vital Signs Temp 37.0 C 07/02/19 16:03 Pulse 78 07/02/19 21:18 Resp 20 07/02/19 21:18 BP 181/120 H 07/02/19 21:18 Pulse Ox 99 07/02/19 21:18 ENMT Mouth: + dental restorations; no TMJ abnormality and no dentition abnormality Thyromental Distance: > or= 3.5 Finger Breadths Mallampati Class: II Mouth / Teeth: 1. Paulina Neck neck extension not limited Respiratory normal respiratory effort; no respiratory distress Auscultation: lungs clear to auscultation bilaterally Cardiovascular Rate/Rhythm: regular rate and regular rhythm Neurologic moves all extremities Psychiatric Orientation: alert and oriented x 3 Testing Laboratory Results 07/02/19 19:32 07/02/19 19:32
[2019-07-02] MEDS ORDERED: SUCCINYLCHOLINE 100MG/5ML SYR ONE (22:07)
[2019-07-02] MEDS ORDERED: PROPOFOL IV EMULSION 10 MG/ML 20 ML VIAL IV ONE (22:07)
[2019-07-02] MEDS ORDERED: fentaNYL citrate 100 MCG/2 ML VIAL ONE ×3 (22:08→23:45)
[2019-07-02] MEDS ORDERED: MIDAZOLAM HCL 1 MG/ML 2ML VIAL ONE (22:08)
[2019-07-02] MEDS ORDERED: ePHEDrine sulfate 50 MG/ML AMP IV PRN (22:17)
[2019-07-02] MEDS ORDERED: ATROPINE SULFATE 0.1 MG/ML 10ML SYR IV PRN (22:17)
[2019-07-02] MEDS ORDERED: ONDANSETRON INJ 2 MG/ML 2 ML VIAL IV PRN (22:17)
[2019-07-02] MEDS ORDERED: HYDROmorphone INJ 2 MG/ML SYR/VIAL IV PRN (22:17)
[2019-07-02] MEDS ORDERED: DEXAMETHASONE SOD INJ 4 MG/ML VIAL ONE (22:39)
[2019-07-02] MEDS ORDERED: ONDANSETRON INJ 2 MG/ML 2 ML VIAL ONE (22:39)
[2019-07-02] MEDS ORDERED: KETOROLAC 30 MG/ML VIAL ONE (22:39)
--- NOTE | 2019-07-02 23:27 | Operative Report ---
Post Operative Report Pre & Post Diagnosis Operation Date: 07/02/19 22:30 Pre-Op Diagnosis: Incarcerated umbilical hernia Post-Op Diagnosis: Incarcerated umbilical hernia I identified the patient and participated in the time-out.: Yes Procedure Operation Date: 07/02/19 22:30 Actual Procedures p Umbilical Hernia Repair with Mesh(Not Applicable) - Amparo Jolly MD Surgeon Amparo Jolly MD Prosthetic Aide none Estimated Blood Loss 5 Findings See Below (knuckle of incarcerated omentum - partially necrotic, resected) Specimens hernia sac and contents Description of Procedure see operative report I attest to the content of the Intraoperative Record and any orders documented therein. Any exceptions are noted below.
[2019-07-02] MEDS ORDERED: HydrALAZINE HCL 20 MG/ML VIAL IV STA (23:30)
[2019-07-02] MEDS: fentaNYL citrate 100 MCG/2 ML VIAL IV PRN ×2 (23:39→23:45)
[2019-07-02] MEDS ORDERED: HydrALAZINE HCL 20 MG/ML VIAL ONE (23:47)
[2019-07-03] MEDS ORDERED: OXYCODONE/APAP 7.5/325MG TAB PO SCH
[2019-07-03] MEDS: fentaNYL citrate 100 MCG/2 ML VIAL IV PRN (00:01)
--- NOTE | 2019-07-03 00:05 | Anesthesiology Progress Note ---
Date of Service July 03, 2019 Anesthesia Post Procedure Vital Signs Vital Signs: Temp Pulse Pulse Pulse Resp BP BP 07/02/19 23:55 71 14 151/99 H 07/02/19 23:45 73 16 163/103 H 07/02/19 23:35 80 16 210/117 H 07/02/19 23:28 36.2 C L 85 20 165/111 H 07/02/19 21:18 78 20 181/120 H 07/02/19 19:22 67 18 161/100 H 07/02/19 18:17 80 20 174/99 H 07/02/19 16:03 37.0 C 78 18 188/109 H Pulse Ox 07/02/19 23:55 94 07/02/19 23:45 96 07/02/19 23:35 93 07/02/19 23:28 95 07/02/19 21:18 99 07/02/19 19:22 99 07/02/19 18:17 96 07/02/19 16:03 97 Pain Intensity Abdomen: Pain Intensity: 6 Transfer of Care Handoff Completed per policy Notes Mental Status: alert / awake / arousable and participated in evaluation Patient Amnestic to Procedure: Yes Nausea / Vomiting: adequately controlled Pain: adequately controlled Airway Patency, RR, SpO2: stable & adequate BP & HR: stable & adequate Hydration State: stable & adequate Anesthetic Complications: no major complications apparent and Pt Satisfied with anesthetic care
[2019-07-03] MEDS ORDERED: MoRPHine SULFATE 4 MG/ML 1 ML CARP\\VIAL IV PRN (00:33)
[2019-07-03] MEDS ORDERED: OXYCODONE/ACETAMINOPHEN 5mg/325mg TAB PO PRN (00:33)
[2019-07-03] MEDS ORDERED: ACETAMINOPHEN 325 MG TAB PO PRN (00:33)
[2019-07-03] MEDS ORDERED: MoRPHine SULFATE 2 MG/ML CARP IV PRN ×2 (00:33)
[2019-07-03] MEDS ORDERED: ONDANSETRON INJ 2 MG/ML 2 ML VIAL IV PRN (00:33)
--- NOTE | 2019-07-03 01:23 | Operative Report ---
DATE OF OPERATION: 07/02/2019 PREOPERATIVE DIAGNOSIS: Incarcerated umbilical hernia with fat necrosis. POSTOPERATIVE DIAGNOSIS: Incarcerated umbilical hernia with fat necrosis. OPERATIVE PROCEDURE: Open repair of incarcerated umbilical hernia with mesh. SURGEON: Amparo Jolly MD BACK TENDER PAPER MACHINE: None. ANESTHESIA: General endotracheal anesthesia. ASA CLASS: 2E. ESTIMATED BLOOD LOSS: 5 mL. INTRAVENOUS FLUIDS: 1400 mL. URINE OUTPUT: Not applicable. SPECIMENS: Hernia sac. DRAINS: None. COMPLICATIONS: None. INDICATIONS: Mr. Bruce is a 58-year-old man who presented with the acute onset of an incarcerated umbilical hernia with surrounding redness and excruciating pain. CT scan showed a knuckle of omentum with evidence of fat necrosis. He was consented for repair. DESCRIPTION OF PROCEDURE: The patient received Ancef preoperatively. After the induction of general endotracheal anesthesia, he had placement of sequential compression devices. His abdomen was clipped and then sterilely prepped and draped. His previous supraumbilical incision was reopened. This was carried down and the umbilicus identified. The umbilicus was transected at its base and the hernia sac seen inferiorly. The hernia sac was noted to contain a knuckle of partially necrotic omentum, this was resected, and the remainder of the healthy tissue placed back into the peritoneal cavity. The defect itself measured about 2 cm in length. A small C-QUR V-patch was then placed as an underlay. The straps were pulled up and this was secured with interrupted 0 PDS sutures. The wound was irrigated. A 30 mL of 0.5% Marcaine were injected for local anesthesia. The umbilicus was tacked back down with Vicryl stitches. The subcutaneous layer Vicryl stitches were placed using 3-0 Vicryl and the skin was closed with running subcuticular 4-0 Vicryl sutures. Steri-Strips, sterile dressings were applied. He was awakened and taken to recovery in stable condition. I attest to the content of the Intraoperative Record and any orders documented therein. Any exception s are noted below.
[2019-07-03] MEDS: OXYCODONE/ACETAMINOPHEN 5mg/325mg TAB PO PRN ×3 (01:26→09:28)
[2019-07-03] MEDS: LACTATED RINGER'S 1,000 ML IV SCH ×2 (01:27→11:25)
--- NOTE | 2019-07-03 03:06 | Emergency Department Note ---
Entered by Loraine Gillis acting as a scribe for Ricardo Price MD History of Present Illness General Chief complaint: Abdominal Pain Stated complaint: HERNIA Time Seen by Provider: 07/02/19 18:12 History of Present Illness Provider complaint: abdominal pain Onset (ago): hour(s) 8 Location: abdomen Pain Consistency: + constant Maximum Pain Intensity: 8 Exacerbated By: + movement and + other (palpation of area) Associated symptoms: + denies other symptoms (applying ice) and + other (felt pop in center of abdomen when lifting something today, skin around his umbilicus became red and tender, feels like umbilical hernia, normal bowel movements) The patient is a 58 year old male who presents to the ED with complaints of constant abdominal pain that started 8 hours ago. The patient states that he was lifting something at work today when he felt a pop in the center of his abdomen. The patient states that shortly after this, the skin around his umbilicus became red and tender. The patient denies putting ice on this area. The patient notes that it feels like an umbilical hernia but he denies ever being diagnosed with one. The patient states that he had an inguinal hernia in the past and the pain feels similar. The patient notes that his pain is exacerbated by movement or palpation of the area. The patient notes that he has been having normal bowel movements and no pain in the past few days. 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 and A total of 10 systems reviewed and were otherwise negative Physical Exam Vital Signs Vital Signs - 24 hr 07/02/19 16:03 07/02/19 18:17 07/02/19 19:22 Temperature 37.0 C Temperature Source Oral Pulse Rate 78 Pulse Rate [Apical] Pulse Rate [Right Finger] 80 67 Pulse Rhythm [Right Finger] Regular Pulse Strength [Right Finger] Normal Respiratory Rate 18 20 18 Respiratory Effort / Characteristics Non-Labored Respiratory Depth Normal Respiratory Pattern Regular Blood Pressure 188/109 H Blood Pressure [Right Arm] 174/99 H 161/100 H Blood Pressure Mean 135 Blood Pressure Mean [Right Arm] 124 120 Blood Pressure Position [Right Arm] Lying Pulse Oximetry 97 96 99 Oxygen Delivery Method Room Air Room Air Sepsis Recent Fever Within 48 Hours No Sepsis New/Unexplained Change in Mental Status No Sepsis Action Taken by Nursing No Action Required 07/02/19 21:18 07/02/19 23:28 07/02/19 23:35 Temperature 36.2 C L Temperature Source Temporal Artery Scan Pulse Rate Pulse Rate [Apical] 85 80 Pulse Rate [Right Finger] 78 Pulse Rhythm [Right Finger] Pulse Strength [Right Finger] Respiratory Rate 20 20 16 Respiratory Effort / Characteristics Respiratory Depth Respiratory Pattern Blood Pressure Blood Pressure [Right Arm] 181/120 H 165/111 H 210/117 H Blood Pressure Mean Blood Pressure Mean [Right Arm] 140 129 148 Blood Pressure Position [Right Arm] Pulse Oximetry 99 95 93 Oxygen Delivery Method Room Air Room Air Room Air Sepsis Recent Fever Within 48 Hours Sepsis New/Unexplained Change in Mental Status Sepsis Action Taken by Nursing GENERAL: Awake, alert, uncomfortable but otherwise well-appearing, in no distress HENT: Normocephalic, atraumatic. Oropharynx unremarkable. EYES: Normal conjunctiva. Sclera non-icteric. NECK: Supple. No nuchal rigidity. FROM. No JVD. RESPIRATORY: Clear to auscultation bilaterally. CARDIAC: Regular rate, normal rhythm. Extremities warm and well perfused. Pulses equal. ABDOMEN: Soft, non-distended. 10 cm area of erythema, warmth and mild induration of periumbilical region with mild tenderness. No rebound or guarding. No masses. RECTAL: Deferred. MUSCULOSKELETAL: Chest examination reveals no tenderness. The back is symmetrical on inspection without obvious abnormality. There is no CVA tenderness to palpation. No joint edema. LOWER EXTREMITIES: Calves are equal size bilaterally and non-tender. No edema. No discoloration. NEURO: Normal sensorium. No sensory or motor deficits noted. SKIN: No rash or jaundice noted. Course Course 1824: Past medical records reviewed. The patient was evaluated in room B04A. A complete history and physical exam was performed. 2112: I discussed the patient's case with Dr. Dominique Mayorga. She will come see the patient in the ED. 2122: I reevaluated the patient and he is resting comfortable. I updated him on the test results and plan for admission. He verbally agrees and understands. Consultations Consultation #1: I discussed the patient's case with Dr. Dominique Mayorga. She will come see the patient in the ED Time: 21:13 Consultation #2: I discussed the patient's case with Dr. Dominique Mayorga. She will evaluate the patient for further management in the OR. Time: 21:58 Administered Medications Lactated Ringer's (Lr) 1,000 mls @ 100 mls/hr IV .Q10H EAN Stop: 08/02/19 00:32 Last Admin: 07/03/19 01:27 Dose: 100 mls/hr Documented by: [id number] Ioversol (Optiray 320 100ml) 94 ml IV ONCE PRN PRN Reason: Interaction Checking Stop: 07/06/19 20:33 Last Admin: 07/02/19 20:34 Dose: 94 ml Documented by: [id number] Oxycodone/Acetaminophen (Percocet 5mg/325mg) 2 tab PO Q4H PRN PRN Reason: SEVERE Pain (Scale 7,8,9,10) Stop: 07/17/19 00:32 Last Admin: 07/03/19 01:26 Dose: 2 tab Documented by: [id number] Discontinued Medications Bupivacaine HCl (Marcaine 0.5% Mpf) Confirm Administered Dose 60 ml .ROUTE .STK- MED ONE Stop: 07/02/19 21:34 Last Admin: 07/02/19 23:10 Dose: 30 ml Documented by: [id number] Dexamethasone Sodium Phosphate (Decadron Pf) Confirm Administered Dose 10 mg .ROUTE .STK-MED ONE Stop: 07/02/19 19:20 Last Admin: 07/02/19 19:41 Dose: 10 mg Documented by: [id number] Fentanyl Citrate (Fentanyl Citrate) 50 mcg IV Q5M PRN PRN Reason: PACU Use Only-Pain Stop: 07/03/19 03:17 Last Admin: 07/03/19 00:01 Dose: 50 mcg Documented by: [id number] Admin: 07/02/19 23:45 Dose: 50 mcg Documented by: [id number] Admin: 07/02/19 23:39 Dose: 50 mcg Documented by: [id number] Fentanyl Citrate (Fentanyl Citrate) Confirm Administered Dose 100 mcg .ROUTE .STK-MED ONE Stop: 07/02/19 23:34 Last Admin: 07/03/19 01:02 Dose: Not Given Documented by: [id number] Fentanyl Citrate (Fentanyl Citrate) Confirm Administered Dose 100 mcg .ROUTE .STK-MED ONE Stop: 07/02/19 23:46 Last Admin: 07/03/19 01:03 Dose: Not Given Documented by: [id number] Hydralazine HCl (Hydralazine Hcl) 10 mg IV NOW STA Stop: 07/02/19 23:31 Last Admin: 07/02/19 23:49 Dose: 10 mg Documented by: [id number] Hydralazine HCl (Hydralazine Hcl) Confirm Administered Dose 20 mg .ROUTE .STK- MED ONE Stop: 07/02/19 23:48 Last Admin: 07/03/19 01:03 Dose: Not Given Documented by: [id number] Sodium Chloride (Nss 1000ml) 1,000 mls @ 999 mls/hr IV .Q1H1M ONE Stop: 07/02/19 19:30 Last Infusion: 07/02/19 20:40 Dose: 0 mls/hr Documented by: [id number] Admin: 07/02/19 19:39 Dose: 999 mls/hr Documented by: [id number] Acetaminophen (Ofirmev) 1,000 mg in 100 mls @ 400 mls/hr IV NOW STA Stop: 07/02/19 18:44 Last Infusion: 07/02/19 19:58 Dose: 0 mls/hr Documented by: [id number] Admin: 07/02/19 19:43 Dose: 400 mls/hr Documented by: [id number] Dexamethasone Sodium Phosphate (10 mg/ Syringe) 2.5 mls @ 1 mls/min IV NOW STA Stop: 07/02/19 18:32 Last Admin: 07/02/19 19:42 Dose: Not Given Documented by: [id number] Sodium Chloride (Nss 1000ml) 1,000 mls @ 125 mls/hr IV .Q8H STA Stop: 07/03/19 05:36 Last Admin: 07/03/19 01:04 Dose: Not Given Documented by: [id number] Cefazolin Sodium (Ancef 2000mg) 2,000 mg in 15 mls @ 3.75 mls/min IV PREOP ONE Stop: 07/02/19 21:59 Last Admin: 07/02/19 22:32 Dose: 3.75 mls/min Documented by: [id number] Ketorolac Tromethamine (Toradol) 15 mg IV NOW STA Stop: 07/02/19 18:31 Last Admin: 07/02/19 19:40 Dose: 15 mg Documented by: [id number] Morphine Sulfate (Morphine Sulfate) 8 mg IV NOW STA Stop: 07/02/19 21:12 Last Admin: 07/02/19 21:16 Dose: 8 mg Documented by: [id number] Medical Decision Making Differential Diagnosis Differential diagnosis: Etiologies such as biliary colic, cholecystitis, hepatitis, pancreatitis, cardiac disease, pancreatitis, gastritis, peptic ulcer disease, appendicitis, cystitis, diverticulitis, mesenteric ischemia, inflammatory bowel disease, ileus, bowel obstruction, testicular torsion, aortic pathology, shingles, as well as others were considered. Medical Records Attestation: I reviewed the patient's medical records. Home Medications Current Medication List: was personally reviewed by me Laboratory Data Attestation: I reviewed the patient's lab results. Result diagrams: 07/02/19 19:32 07/02/19 19:32 Lab Results 07/02/19 07/02/19 07/02/19 Range/Units 19:32 19:32 19:47 WBC 9.32 (4.8-10.8) K/uL RBC 4.47 L (4.7-6.1) M/uL Hgb 14.0 (14.0-18.0) g/dL Hct 40.1 L (42-52) % MCV 89.7 (80-100) fL MCH 31.3 (25-34) pg MCHC 34.9 (32-36) g/dL RDW Std Deviation 43.8 (36.4-46.3) fL RDW Coeff of Kelsi 13.3 (11.5-14.5) % Plt Count 224 (130-400) K/uL MPV 9.6 (7.4-10.4) fL Immature Gran % (Auto) 0.3 % Neut % (Auto) 63.7 % Lymph % (Auto) 23.0 % Sherman % (Auto) 11.4 % Eos % (Auto) 1.4 % Baso % (Auto) 0.2 % Immature Gran # (Auto) 0.03 H (0.00-0.02) K/uL Neut # (Auto) 5.94 (1.4-6.5) K/uL Lymph # (Auto) 2.14 (1.2-3.4) K/uL Sherman # (Auto) 1.06 H (0.11-0.59) K/uL Eos # (Auto) 0.13 (0-0.5) K/uL Baso # (Auto) 0.02 (0-0.2) K/uL Sodium 137 (136-145) mmol/L Potassium 3.9 (3.5-5.1) mmol/L Chloride 108 H (98-107) mmol/L Carbon Dioxide 24 (21-32) mmol/L Anion Gap 5.0 (3-11) BUN 13 (7-18) mg/dl Creatinine 1.13 (0.6-1.4) mg/dl POC Creatinine 1.1 (0.6-1.3) mg/dl Est Cr Clr Drug Dosing 81.8 ml/min Est GFR ( Amer) 82.6 Est GFR (Non-Af Amer) 71.3 BUN/Creatinine Ratio 11.9 (10-20) Glucose 94 (70-99) mg/dl Calcium 8.9 (8.5-10.1) mg/dl Total Bilirubin 0.4 (0.2-1) mg/dl AST 16 (15-37) U/L ALT 28 (12-78) U/L Alkaline Phosphatase 73 (45-117) U/L Total Protein 7.3 (6.4-8.2) gm/dl Albumin 3.7 (3.4-5.0) gm/dl Globulin 3.6 (2.5-4.0) gm/dl Albumin/Globulin Ratio 1.0 (0.9-2) Lipase 155 (73-393) U/L Imaging Data Radiologist's Impression: Radiology results as stated below per my review and the radiologist's interpretation: ABDOMEN AND PELVIS CT WITH IV CONTRAST CT DOSE: 981.24 mGy.cm HISTORY: Acute periumbilical abdominal pain with possible hernia perimbilical pain, ?hernia TECHNIQUE: Multiaxial CT images of the abdomen and pelvis were performed following the IV administration of 94 cc of Optiray 320, A dose lowering technique was utilized adhering to the principles of ALARA. COMPARISON STUDY: CTA of the chest 01/17/2017 FINDINGS: Lipoma versus herniated fat noted at the right lung base, 3.5 cm. Minimal bi basilar atelectasis. No pneumatosis or pneumoperitoneum. Imaged inferior cardiac chambers are unremarkable. Spleen, pancreas, adrenal glands, liver and gallbladder appear unremarkable. Patency of the hepatic and portal veins. No biliary ductal dilation. No renal or ureteral calculi or obstructive uropathy. Is probable cyst of the inferior pole right kidney, 6 mm. Decompressed urinary bladder with wall thickening. Prostate is prominent in size. Fat within the inguinal canals, left greater than right may be physiologic or reflect small inguinal hernias. Mixed plaque of the abdominal aorta without aneurysm. Unremarkable IVC. No adenopathy. No bowel obstruction or bowel wall thickening. Mild fecal retention. Terminal ileum and appendix appear normal. Moderate sized fat filled periumbilical h ernia, diastases 2.8 cm. Moderate inflammatory stranding and edema is noted within the periumbilical tissues. Mild adjacent skin thickening and induration. Spondylitic spurring and facet arthrosis of the lumbar spine. No acute fracture. Anterior disc osteophyte complex formation of the lumbar spine are also noted. Mild lumbar levoscoliosis. IMPRESSION: 1. No bowel obstruction or bowel wall thickening. Normal appendix. 2. Moderate sized fat filled periumbilical hernia containing moderate inflam matory stranding and trace free fluid. Findings are suspicious for nonreducible hernia with fat necrosis. No bowel extension into the hernia sac. 3. Additional findings as above. ACT 112: Negative or not required by law. The above report was generated using voice recognition software. It may contain grammatical, syntax or spelling errors. Electronically signed by: Paul Bess M.D. 07/02/2019 9:01 PM Blood Pressure Blood Pressure Findings: Elevated blood pressure Blood Pressure Disposition: further management by hospitalist GRISEL Cummings The patient is a pleasant 58-year-old gentleman who presents emergency department with acute onset umbilical abdominal pain after lifting heavy objects at work today where he felt a pop and subsequently has felt worsening pain in his umbilical region per HPI. Patient presents during a time of high volume and high acuity in the emergency department and unfortunately did have an extended wait in the waiting room. On arrival the patient is uncomfortable but no acute distress, afebrile stable vital signs. On exam the patient has a 10 cm region of erythema, warmth and induration around his umbilicus. No crepitus. He has moderate tenderness in this area but no other abdominal pain or guarding. WBC, hemoglobin and platelets within normal limits. Chemistry without acidosis. Electrolytes and LFTs unremarkable. CT abdomen pelvis demonstrated extensive umbilical stranding associated with fat-containing umbilical hernia which clinically is incarcerated. There is no bowel contained within the hernia. Patient continued to feel uncomfortable and was given morphine. Case was discussed with general surgery, Dr. Jolly, who evaluated the patient and will take the patient to the OR. Patient was agreeable with plan. Impression & Plan Incarcerated umbilical hernia, Abdominal pain Discharge Plan Visit Data *Final* Discharge Date/Time: 07/02/19 22:03 Chief Complaint: Abdominal Pain Stated Complaint: HERNIA ED Provider: Ricardo Price Discharge Problem: Incarcerated umbilical hernia, Abdominal pain Patient Disposition: Being Evaluated by Surgeon Discharge Instructions Interventions: ED Discharge Assessment Last Done: 07/02/19 22:03 Discharge Problem: Abdominal pain Qualifiers: Abdominal location: periumbilical Qualified Code(s): R10.33 - Periumbilical pain The scribe's documentation has been prepared under my direction and personally reviewed by me in its entirety. I confirm that the note above accurately reflect s all work, treatment, procedures, and medical decision making performed by me.
[2019-07-03] MEDS: CEFAZOLIN 1000MG 1,000 MG/7.5 ML SYR IV SCH ×2 (05:28→13:58)
[2019-07-03] MEDS ORDERED: POLYETHYLENE (MIRALAX) 17 GM PACK PO PRN (10:50)
--- NOTE | 2019-07-03 10:54 | Surgery Progress Note ---
Date of Service July 03, 2019 Assessment & Plan (1) Incarcerated umbilical hernia: POD#1 s/p repair with mesh. Having postop pain - not well managed. Will add toradol. May have component of gas cramps and has not had bowel movement - miralax added Ice pack to the area Increase walking/ activity as this will help with return of bowel function. Advance diet - will discharge later if symptoms improve. Present on Admission?: Yes Subjective In a fair amount of pain - localized to area under the umbilicus. Huntly mild nausea earlier and needed zofran. Taking percocet which helps with pain. No fla tus yet. Review of Systems Review of Systems: All systems reviewed & are unremarkable except as noted in HPI & below Physical Exam Constitutional: WD/WN, vitals as above Neck: normal visual inspection Respiratory: normal respiratory effort, lungs clear to auscultation Cardiovascular: RRR, no murmur, no edema Gastrointestinal (Abdomen): Inspection/Auscultation: + abdomen distended (moderate) Percussion/Palpation: + abdomen tender (at umbilicus) dressing dry and intact, hypoactive bowel tones Neurologic: moves all extremities; no focal motor deficits Psychiatric: A+Ox3, euthymic affect Results & Data Vital Signs (Past 12 Hours) Vital Signs Temp Pulse Pulse Pulse Resp BP Pulse Ox 07/03/19 07:25 36.5 C 68 16 152/84 H 95 07/03/19 03:30 36.6 C 68 16 143/85 H 95 07/03/19 02:28 36.5 C 63 16 161/87 H 98 07/03/19 01:30 36.5 C 72 14 173/97 H 95 07/03/19 01:01 36.5 C 65 16 167/90 H 95 07/03/19 00:40 36.6 C 70 20 163/94 H 95 07/03/19 00:30 07/03/19 00:10 71 14 158/98 H 94 07/03/19 00:05 36.5 C 73 16 160/102 H 97 07/02/19 23:55 71 14 151/99 H 94 07/02/19 23:45 73 16 163/103 H 96 07/02/19 23:35 80 16 210/117 H 93 07/02/19 23:28 36.2 C L 85 20 165/111 H 95 Pulse Ox 02/01/20 07:25 07/03/19 03:30 07/03/19 02:28 07/03/19 01:30 07/03/19 01:01 07/03/19 00:40 07/03/19 00:30 95 07/03/19 00:10 07/03/19 00:05 07/02/19 23:55 07/02/19 23:45 07/02/19 23:35 07/02/19 23:28
[2019-07-03] MEDS: KETOROLAC TROMETHAMINE 15 MG/ML VIAL IV PRN ×2 (11:28→17:44)
--- NOTE | 2019-07-03 17:56 | Discharge Summary ---
Date of Service July 03, 2019 Admission HPI Per Admitting Provider 58 yr old man with history of prior laparoscopic right inguinal hernia repair presents with acutely incarcerated umbilical hernia. Was lifting heavy things this morning and felt a pop in his umbilicus. Developed severe pain, sharp, stabbing, worse with activity, better if stood still, no associated nausea or vomiting, no radiation. Childs a bulge at umbilicus which then started to look red and redness started spreading. Came to ER and CT scan showed fat necrosis within incarcerated umbilical hernia. Last meal was 10 am. Admission Exam (Per Admitting) Constitutional WD/WN, vitals as above Eyes PERRL, conjunctivae normal, anicteric sclerae ENMT Ears: no hearing impairment Neck normal visual inspection Respiratory normal respiratory effort, lungs clear to auscultation Cardiovascular RRR, no murmur, no edema Gastrointestinal (Abdomen) Inspection/Auscultation: + abdomen distended (moderate) Percussion/Palpation: + abdomen tender (at umbilicus) and abdomen soft Musculoskeletal no cyanosis or clubbing, extremities motor strength 5/5 Skin no rashes, warm and dry Neurologic PERRL, EOMI, accommodation nl, no face palsy, no dysarthria moves all extremities; no focal motor deficits Psychiatric A+Ox3, euthymic affect Discharge Data Consultations 07/02/19 22:01 ED Decision to Admit Stat Procedures Performed Operation Date: 07/02/19 22:30 Actual Procedures p Umbilical Hernia Repair with Mesh(Not Applicable) - Amparo Jolly MD Hospital Course (1) Incarcerated umbilical hernia: POD#1 s/p repair with mesh. Having postop pain - not well managed. Will add toradol. May have component of gas cramps and has not had bowel movement - miralax added Ice pack to the area Increase walking/ activity as this will help with return of bowel function. Advance diet - will discharge later if symptoms improve. pain improved. Was able to tolerated diet. was anxious to go home. Discharge Instructions f/u in 2 weeks walking/ stairs OK today no strenuous activity x 4 -6 weeks
[2019-07-03] MEDS ORDERED: Nursing to Pharmacy Communication ONE (18:52)
[2019-07-05] MEDS ORDERED: LIDOCAINE HCL 2% 2 ML VIAL/AMP(20MG/ML) INFIL ONE (06:28)
[2019-07-05] MEDS ORDERED: fentaNYL citrate 100 MCG/2 ML VIAL ONE (06:28)
[2019-07-05] MEDS ORDERED: ONDANSETRON INJ 2 MG/ML 2 ML VIAL ONE (06:28)
[2019-07-05] MEDS ORDERED: PROPOFOL IV EMULSION 10 MG/ML 20 ML VIAL IV ONE (06:28)
[2019-07-05] MEDS ORDERED: MIDAZOLAM HCL 1 MG/ML 2ML VIAL ONE (06:28)
[2019-07-05] MEDS ORDERED: DEXAMETHASONE SOD INJ 4 MG/ML VIAL ONE (06:28)
== END 2019-07-03 19:40 | disposition home or self-care (01) ==
LOC: ED 15:47 → OR 22:03 → 3W 22:03